=== PATIENT | male | born 1930 | race Caucasian/White ===

== ENCOUNTER 2019-04-20 23:50 | Inpatient (IN) | payer OTHER ==
[~2019-04-20] VITALS: Ht 165.1 cm; Wt 77.6 kg
[2019-04-21] VITALS (32 sets, daily range): BP systolic 92–153; BP diastolic 40–84
[2019-04-21] MEDS ORDERED: IPRATROPIUM BROMIDE (0.02%) 0.5MG/2.5ML NEB HHN STA (00:24)
[2019-04-21] MEDS ORDERED: METHYLPREDNISOLONE SOD SUCC 125 MG/2 ML VIAL IV STA (00:24)
[2019-04-21] MEDS ORDERED: ONDANSETRON HCL 4MG/2ML INJ IV STA (00:24)
[2019-04-21] MEDS ORDERED: NITROGLYCERIN OINT 1GM/INCH UDPKT TD ONE (00:30)
[2019-04-21] MEDS ORDERED: MAGNESIUM 2 G PREMIX 50 ML IV ONE (00:30)
[2019-04-21] MEDS ORDERED: VANCOMYCIN 1 G PREMIX 200 ML IV ONE (01:00)
[2019-04-21] MEDS ORDERED: PIPERACILLIN/TAZ 3.375G PREMIX 50 ML IV ONE (01:00)
[2019-04-21 01:07] LABS: BASOPHILS % 0.5 % (0.0-2.0); EOSINOPHILS % 2.5 % (0.0-5.0); HEMATOCRIT. 45.7 % (42.0-52.0); HEMOGLOBIN. 14.8 g/dL (14.0-18.0); LYMPHOCYTES % 17.9 % (20.0-50.0); MEAN CORPUSCULAR HEMOGLOBIN 29.8 pg (28.0-32.0); MEAN CORPUSCULAR VOLUME 92.1 fL (80.0-94.0); MEAN PLATELET VOLUME 8.4 fl (7.4-10.4); MONOCYTES % 5.5 % (2.0-8.0); NEUTROPHILS % 73.6 % (40.0-76.0); PLATELET 238 x1000/uL (130-400); RED BLOOD CELL COUNT 4.96 mill/uL (4.7-6.1); RED CELL DISTRIBUTION WIDTH 18.2 % (11.6-14.6)
[2019-04-21 01:42] LABS: CHLORIDE 115 mEq/L (98-107)
[2019-04-21] MEDS: ALBUTEROL (0.083%) 2.5MG/3ML NEB HHN SCH ×3 (02:30→03:30)
[2019-04-21] MEDS ORDERED: ALBUTEROL (0.083%) 2.5MG/3ML NEB ONE (03:42)
[2019-04-21] MEDS ORDERED: DOCUSATE SODIUM 100MG CAPSULE PO PRN (07:30)
[2019-04-21] MEDS ORDERED: GUAIFENESIN 200MG/10ML SUGAR FREE UDC PO PRN (07:30)
[2019-04-21] MEDS ORDERED: LORAZEPAM 2MG/ML CPJ IV PRN (07:30)
[2019-04-21] MEDS ORDERED: ACETAMINOPHEN 325MG TABLET PO PRN (07:30)
[2019-04-21] MEDS ORDERED: MORPHINE SULFATE 2 MG/ML CPJ (NOT FOR IM USE) IV PRN (07:30)
[2019-04-21] MEDS ORDERED: IPRATROPIUM/ALBUTEROL 0.5-3(2.5)MG/3ML NEB HHN PRN (07:30)
[2019-04-21] MEDS ORDERED: CLONIDINE 0.1MG TABLET PO PRN (07:30)
[2019-04-21] MEDS ORDERED: DIPHENHYDRAMINE 50MG/ML VIAL IV PRN (07:30)
[2019-04-21] MEDS ORDERED: ONDANSETRON HCL 4MG/2ML INJ IV PRN (07:30)
[2019-04-21] MEDS ORDERED: MAGNESIUM/ALUMINUM HYDROXIDE/SIMETHICONE 30ML UDC PO PRN (07:30)
[2019-04-21] MEDS ORDERED: HYDROCODONE/ACETAMINOPHEN 10/325MG TABLET PO PRN (07:30)
[2019-04-21] MEDS: ENOXAPARIN 40MG/0.4ML SYR SUBCUT SCH (09:30)
[2019-04-21] MEDS ORDERED: PROPOFOL 10MG/ML 100ML 100 ML IV PRN (11:45)
[2019-04-21] MEDS: IPRATROPIUM/ALBUTEROL 0.5-3(2.5)MG/3ML NEB HHN SCH ×3 (12:05→20:31)
[2019-04-21 12:35] LABS: BG BASE EXCESS -3.4 mmol/L (-2.0-2.0); BG CARBOXYHEMOGLOBIN 0.9 % (0.5-1.5); BG DEOXYHEMOGLOBIN 1.8 % (0.0-5.0); BG FRACTION INSPIRED OXYGEN 50; BG METHEMOGLOBIN 0.3 % (0.0-1.5); BG OXYGEN SATURATION 98.2 % (92.0-98.5); BG PO2 106.5 mmHg (75.0-100.0); BG SAMPLE SITE RIGHT RADIAL; BG TIDAL VOLUME(mL) 500 mL; BG TOTAL HEMOGLOBIN 14.7 g/dL (12.0-18.0); BG VENT MODE VENT - A/C; BG VENT RATE 16 set
[2019-04-21 12:41] LABS: T4 FREE 1.28 ng/dL (0.76-1.46)
[2019-04-21] MEDS ORDERED: LIDOCAINE HCL 1% 20ML VIAL (Pyxis) INJ ONE (12:44)
[2019-04-21] MEDS: SODIUM CHLORIDE 0.9% INJ 3ML FLUSH IVF SCH ×2 (13:53→21:14)
[2019-04-21] MEDS: DEXT 5%/0.9% NACL 1,000 ML IV SCH (15:45)
[2019-04-21] MEDS: FUROSEMIDE 40MG/4ML VIAL IVP SCH (15:45)
[2019-04-21 16:24] LABS: CLARITY URINE CLOUDY (CLEAR); COLOR URINE DARK YELLOW (YELLOW); KETONES URINE 1+ (NEGATIVE); LEUKOCYTE ESTERASE URINE NEGATIVE (NEGATIVE); NITRITE URINE NEGATIVE (NEGATIVE); OCCULT BLOOD URINE 3+ (NEGATIVE); PH URINE 5.5 (4.5-8.0); PROTEIN URINE TRACE (NEGATIVE); SPECIFIC GRAVITY URINE 1.031 (1.005-1.030)
[2019-04-21] MEDS: PIPERACILLIN/TAZOBACTAM 3.375 G in DEXT 5% WATER 100 ML IV SCH ×2 (16:35→23:32)
[2019-04-21 16:48] LABS: *AMPHETAMINES SCREEN URINE NEGATIVE (NEGATIVE); *BARBITURATES SCREEN URINE NEGATIVE (NEGATIVE); *BENZODIAZEPINES SCREEN URINE NEGATIVE (NEGATIVE); *COCAINE SCREEN URINE NEGATIVE (NEGATIVE); METHADONE URINE SCREEN NEGATIVE (NEGATIVE); OPIATES URINE SCREEN NEGATIVE (NEGATIVE)
[2019-04-21 16:49] LABS: CANNABINOID URINE SCREEN NEGATIVE (NEGATIVE); PHENCYCLIDINE URINE SCREEN NEGATIVE (NEGATIVE)
[2019-04-21] MEDS: FENTANYL CITRATE/PF 500 MCG in SODIUM CHLORIDE 0.9% 40 ML IV PRN ×2 (17:18→22:46)
[2019-04-21 17:29] LABS: CREATINE KINASE 92 IU/L (39-308)
[2019-04-21] MEDS: VANCOMYCIN 1 G PREMIX 200 ML IV SCH (17:30)
[2019-04-21 17:32] LABS: CREATINE KINASE MB FRACTION 2.3 ng/mL (0.5-3.6)
[2019-04-21] MEDS ORDERED: DOPAMINE 800MG PREMIX (DOUBLE) 250 ML IV PRN (21:30)
[2019-04-21 22:09] LABS: CREATINE KINASE 85 IU/L (39-308)
[2019-04-21 22:10] LABS: CREATINE KINASE MB FRACTION 1.8 ng/mL (0.5-3.6)
[2019-04-21] MEDS ORDERED: IOHEXOL-350 100 ML BOTTLE ONE (23:01)
[2019-04-22] VITALS (64 sets, daily range): BP systolic 60–168; BP diastolic 28–89
[2019-04-22] MEDS: IPRATROPIUM/ALBUTEROL 0.5-3(2.5)MG/3ML NEB HHN SCH ×6 (00:24→19:44)
[2019-04-22] MEDS: PIPERACILLIN/TAZOBACTAM 3.375 G in DEXT 5% WATER 100 ML IV SCH ×4 (05:22→22:13)
[2019-04-22] MEDS: SODIUM CHLORIDE 0.9% INJ 3ML FLUSH IVF SCH ×3 (05:22→22:14)
[2019-04-22 05:33] LABS: BASOPHILS % 0.4 % (0.0-2.0); HEMATOCRIT. 43.4 % (42.0-52.0); HEMOGLOBIN. 14.1 g/dL (14.0-18.0); LYMPHOCYTES % 8.8 % (20.0-50.0); MEAN CORPUSCULAR HEMOGLOBIN 29.3 pg (28.0-32.0); MEAN CORPUSCULAR VOLUME 90.2 fL (80.0-94.0); MEAN PLATELET VOLUME 7.9 fl (7.4-10.4); MONOCYTES % 5.4 % (2.0-8.0); NEUTROPHILS % 85.4 % (40.0-76.0); PLATELET 277 x1000/uL (130-400); RED BLOOD CELL COUNT 4.81 mill/uL (4.7-6.1)
[2019-04-22 05:38] LABS: CHLORIDE 109 mEq/L (98-107)
[2019-04-22 07:45] LABS: BG BASE EXCESS 4.8 mmol/L (-2.0-2.0); BG DEOXYHEMOGLOBIN 4.3 % (0.0-5.0); BG HCO3 ACT 26.8 mmol/L (22.0-26.0); BG METHEMOGLOBIN 0.3 % (0.0-1.5); BG OXYGEN SATURATION 95.6 % (92.0-98.5); BG OXYHEMOGLOBIN 94.4 % (94.0-97.0); BG PCO2 31.9 mmHg (35.0-45.0); BG PH 7.542 (7.350-7.450); BG SAMPLE SITE RIGHT BRACHIAL; BG TIDAL VOLUME(mL) 500 mL; BG TOTAL HEMOGLOBIN 14.7 g/dL (12.0-18.0); BG VENT MODE VENT - A/C; BG VENT RATE 16 set
[2019-04-22] MEDS: FUROSEMIDE 40MG/4ML VIAL IVP SCH (08:09)
[2019-04-22] MEDS: ENOXAPARIN 40MG/0.4ML SYR SUBCUT SCH (08:10)
[2019-04-22] MEDS: FENTANYL CITRATE/PF 500 MCG in SODIUM CHLORIDE 0.9% 40 ML IV PRN ×2 (08:11→14:26)
[2019-04-22] MEDS ORDERED: POTASSIUM CHLORIDE INJ 40 MEQ in DEXT 5% WATER 250 ML IV SCH (10:00)
[2019-04-22] MEDS ORDERED: POTA20LI52 PO (12:13)
[2019-04-22] MEDS ORDERED: LEVO50TA8 PO (12:13)
[2019-04-22] MEDS ORDERED: LISI-186 PO (12:13)
[2019-04-22] MEDS ORDERED: CARV3.1242 PO (12:13)
[2019-04-22] MEDS ORDERED: OXYB5TAB17 PO (12:13)
[2019-04-22] MEDS: VANCOMYCIN 1 G PREMIX 200 ML IV SCH (14:35)
[2019-04-22] MEDS: PANTOPRAZOLE SODIUM 40 MG/VIAL IV SCH (18:12)
[2019-04-22] MEDS: NYSTATIN POWDER 15GM TOP SCH (18:12)
[2019-04-22] MEDS: DEXT 5%/0.9% NACL 1,000 ML IV SCH (18:13)
[2019-04-23] VITALS (39 sets, daily range): BP systolic 93–190; BP diastolic 36–100
[2019-04-23] MEDS: FENTANYL CITRATE/PF 500 MCG in SODIUM CHLORIDE 0.9% 40 ML IV PRN ×3 (03:22→18:11)
[2019-04-23] MEDS: IPRATROPIUM/ALBUTEROL 0.5-3(2.5)MG/3ML NEB HHN SCH ×6 (04:07→20:51)
[2019-04-23 06:06] LABS: CHLORIDE 104 mEq/L (98-107)
[2019-04-23] MEDS: VANCOMYCIN 1 G PREMIX 200 ML IV SCH (06:30)
[2019-04-23] MEDS: PIPERACILLIN/TAZOBACTAM 3.375 G in DEXT 5% WATER 100 ML IV SCH ×3 (06:30→16:54)
[2019-04-23] MEDS: SODIUM CHLORIDE 0.9% INJ 3ML FLUSH IVF SCH ×3 (06:31→22:01)
[2019-04-23 08:06] LABS: BG BASE EXCESS 2.2 mmol/L (-2.0-2.0); BG CARBOXYHEMOGLOBIN 0.5 % (0.5-1.5); BG DEOXYHEMOGLOBIN 3.4 % (0.0-5.0); BG FRACTION INSPIRED OXYGEN 50; BG HCO3 ACT 26.7 mmol/L (22.0-26.0); BG METHEMOGLOBIN 0.1 % (0.0-1.5); BG OXYGEN SATURATION 96.6 % (92.0-98.5); BG PCO2 41.2 mmHg (35.0-45.0); BG PO2 86.9 mmHg (75.0-100.0); BG SAMPLE SITE RIGHT RADIAL; BG TIDAL VOLUME(mL) 500 mL; BG VENT MODE VENT - A/C; BG VENT RATE 12 set
[2019-04-23] MEDS: PANTOPRAZOLE SODIUM 40 MG/VIAL IV SCH (08:41)
[2019-04-23] MEDS: FUROSEMIDE 40MG/4ML VIAL IVP SCH (08:41)
[2019-04-23] MEDS: NYSTATIN POWDER 15GM TOP SCH ×3 (08:42→10:01)
[2019-04-23] MEDS: ENOXAPARIN 40MG/0.4ML SYR SUBCUT SCH (08:43)
[2019-04-23] MEDS: NYSTATIN/TRIAMCIN CREAM 15GM TOP SCH ×2 (09:00→17:00)
[2019-04-23] MEDS ORDERED: ALBUMIN HUMAN 25GM/500ML (5%) IV SCH (11:00)
[2019-04-23] MEDS: AZITHROMYCIN 500 MG TABLET PO SCH (18:06)
[2019-04-23] MEDS: CEFTRIAXONE 1 G PREMIX 50 ML IV SCH (18:28)
[2019-04-23 18:43] LABS: INR 1.3; PROTHROMBIN TIME 13.7 sec (9.6-11.0)
[2019-04-23 18:45] LABS: BASOPHILS % 0.7 % (0.0-2.0); EOSINOPHILS % 1.5 % (0.0-5.0); HEMATOCRIT. 42.9 % (42.0-52.0); HEMOGLOBIN. 14.2 g/dL (14.0-18.0); LYMPHOCYTES % 9.2 % (20.0-50.0); MEAN CORPUSCULAR HEMOGLOBIN 29.5 pg (28.0-32.0); MEAN CORPUSCULAR VOLUME 89.5 fL (80.0-94.0); MEAN PLATELET VOLUME 7.3 fl (7.4-10.4); NEUTROPHILS % 81.6 % (40.0-76.0); PLATELET 234 x1000/uL (130-400); RED BLOOD CELL COUNT 4.79 mill/uL (4.7-6.1); RED CELL DISTRIBUTION WIDTH 17.7 % (11.6-14.6)
[2019-04-24] VITALS (87 sets, daily range): BP systolic 69–195; BP diastolic 37–116
[2019-04-24] MEDS: IPRATROPIUM/ALBUTEROL 0.5-3(2.5)MG/3ML NEB HHN SCH ×6 (00:40→20:44)
[2019-04-24] MEDS: FENTANYL CITRATE/PF 500 MCG in SODIUM CHLORIDE 0.9% 40 ML IV PRN ×3 (04:26→23:31)
[2019-04-24 05:47] LABS: BASOPHILS % 0.3 % (0.0-2.0); EOSINOPHILS % 1.1 % (0.0-5.0); HEMATOCRIT. 44.5 % (42.0-52.0); HEMOGLOBIN. 14.7 g/dL (14.0-18.0); LYMPHOCYTES % 9.8 % (20.0-50.0); MEAN CORPUSCULAR HEMOGLOBIN 29.6 pg (28.0-32.0); MEAN CORPUSCULAR VOLUME 89.8 fL (80.0-94.0); MEAN PLATELET VOLUME 7.8 fl (7.4-10.4); MONOCYTES % 6.3 % (2.0-8.0); NEUTROPHILS % 82.5 % (40.0-76.0); PLATELET 231 x1000/uL (130-400); RED BLOOD CELL COUNT 4.96 mill/uL (4.7-6.1); RED CELL DISTRIBUTION WIDTH 17.9 % (11.6-14.6)
[2019-04-24 06:00] LABS: CHLORIDE 99 mEq/L (98-107)
[2019-04-24 06:07] LABS: PROSTRATE SPECIFIC AG TOTAL 0.19 ng/mL (0.0-4.0)
[2019-04-24 06:13] LABS: PHOSPHORUS 2.6 mg/dL (2.5-4.9)
[2019-04-24 06:18] LABS: HEPATITIS B SURFACE ANTIGEN NEGATIVE
[2019-04-24] MEDS: SODIUM CHLORIDE 0.9% INJ 3ML FLUSH IVF SCH ×3 (06:32→19:53)
[2019-04-24 06:47] LABS: HEPATITIS A AB IGM NEGATIVE (NEGATIVE)
[2019-04-24] MEDS: ENOXAPARIN 40MG/0.4ML SYR SUBCUT SCH (08:49)
[2019-04-24] MEDS: FUROSEMIDE 40MG/4ML VIAL IVP SCH (08:49)
[2019-04-24] MEDS: PANTOPRAZOLE SODIUM 40 MG/VIAL IV SCH (08:49)
[2019-04-24] MEDS: NYSTATIN/TRIAMCIN CREAM 15GM TOP SCH ×2 (09:00→18:45)
[2019-04-24] MEDS: NYSTATIN POWDER 15GM TOP SCH ×3 (09:00→16:59)
[2019-04-24 10:07] LABS: BG BASE EXCESS -0.5 mmol/L (-2.0-2.0); BG CARBOXYHEMOGLOBIN 0.4 % (0.5-1.5); BG DEOXYHEMOGLOBIN 2.1 % (0.0-5.0); BG METHEMOGLOBIN 0.2 % (0.0-1.5); BG OXYGEN SATURATION 97.9 % (92.0-98.5); BG OXYHEMOGLOBIN 97.3 % (94.0-97.0); BG PCO2 34.5 mmHg (35.0-45.0); BG PH 7.441 (7.350-7.450); BG PO2 102.3 mmHg (75.0-100.0); BG SAMPLE SITE RIGHT RADIAL; BG TIDAL VOLUME(mL) 500 mL; BG TOTAL HEMOGLOBIN 14.6 g/dL (12.0-18.0); BG VENT MODE VENT - A/C; BG VENT RATE 12 set
[2019-04-24] MEDS ORDERED: MAGNESIUM 2 G PREMIX 50 ML IV NR (10:30)
[2019-04-24] MEDS ORDERED: POTASSIUM CHLORIDE INJ 60 MEQ in DEXT 5% WATER 500 ML IV NR (10:30)
[2019-04-24] MEDS ORDERED: RACEPINEPHRINE 2.25% 0.5ML NEB VIAL HHN NR (14:15)
[2019-04-24] MEDS: AZITHROMYCIN 500 MG TABLET PO SCH (17:05)
[2019-04-24] MEDS: CEFTRIAXONE 1 G PREMIX 50 ML IV SCH (18:45)
[2019-04-24] MEDS: METHYLPREDNISOLONE SOD SUCC 40 MG/ML VIAL IV SCH (18:47)
[2019-04-25] VITALS (34 sets, daily range): BP systolic 79–170; BP diastolic 43–103
[2019-04-25] MEDS: IPRATROPIUM/ALBUTEROL 0.5-3(2.5)MG/3ML NEB HHN SCH ×6 (00:34→20:41)
[2019-04-25] MEDS: METHYLPREDNISOLONE SOD SUCC 40 MG/ML VIAL IV SCH ×2 (05:16→17:22)
[2019-04-25] MEDS: SODIUM CHLORIDE 0.9% INJ 3ML FLUSH IVF SCH ×3 (05:16→21:38)
[2019-04-25 05:59] LABS: CHLORIDE 98 mEq/L (98-107)
[2019-04-25 06:25] LABS: HEMATOCRIT. 44.9 % (42.0-52.0); HEMOGLOBIN. 15.2 g/dL (14.0-18.0); MEAN CORPUSCULAR HEMOGLOBIN 30.2 pg (28.0-32.0); MEAN CORPUSCULAR VOLUME 89.3 fL (80.0-94.0); MEAN PLATELET VOLUME 7.9 fl (7.4-10.4); PLATELET 239 x1000/uL (130-400); RED BLOOD CELL COUNT 5.04 mill/uL (4.7-6.1); RED CELL DISTRIBUTION WIDTH 17.4 % (11.6-14.6)
[2019-04-25 08:28] LABS: BG BASE EXCESS 0.3 mmol/L (-2.0-2.0); BG CARBOXYHEMOGLOBIN 1.1 % (0.5-1.5); BG DEOXYHEMOGLOBIN 1.6 % (0.0-5.0); BG HCO3 ACT 23.3 mmol/L (22.0-26.0); BG METHEMOGLOBIN 0.3 % (0.0-1.5); BG OXYGEN SATURATION 98.4 % (92.0-98.5); BG PCO2 32.9 mmHg (35.0-45.0); BG PH 7.468 (7.350-7.450); BG PO2 110.2 mmHg (75.0-100.0); BG SAMPLE SITE RIGHT RADIAL; BG TIDAL VOLUME(mL) 500 mL; BG TOTAL HEMOGLOBIN 14.3 g/dL (12.0-18.0); BG VENT MODE VENT - A/C; BG VENT RATE 12 set
[2019-04-25] MEDS: FENTANYL CITRATE/PF 500 MCG in SODIUM CHLORIDE 0.9% 40 ML IV PRN (08:41)
[2019-04-25] MEDS: FUROSEMIDE 40MG/4ML VIAL IVP SCH (09:02)
[2019-04-25] MEDS: PANTOPRAZOLE SODIUM 40 MG/VIAL IV SCH (09:02)
[2019-04-25] MEDS: NYSTATIN POWDER 15GM TOP SCH ×3 (09:03→17:23)
[2019-04-25] MEDS: NYSTATIN/TRIAMCIN CREAM 15GM TOP SCH ×2 (09:03→17:22)
[2019-04-25 09:18] LABS: PLATELET ESTIMATE NORMAL
[2019-04-25] MEDS ORDERED: FUROSEMIDE 40MG/4ML VIAL IVP NR (12:30)
[2019-04-25] MEDS: HYDRALAZINE 20MG/ML VIAL IV PRN (12:39)
[2019-04-25 13:38] LABS: BG BASE EXCESS -0.1 mmol/L (-2.0-2.0); BG CARBOXYHEMOGLOBIN 0.8 % (0.5-1.5); BG CPAP (cmH2O) 0 cm(H2O); BG DEOXYHEMOGLOBIN 2.9 % (0.0-5.0); BG METHEMOGLOBIN 0.3 % (0.0-1.5); BG OXYGEN SATURATION 97.1 % (92.0-98.5); BG PCO2 42.4 mmHg (35.0-45.0); BG PH 7.389 (7.350-7.450); BG SAMPLE SITE RIGHT BRACHIAL; BG TOTAL HEMOGLOBIN 15.4 g/dL (12.0-18.0); BG VENT MODE VENT - CPAP
[2019-04-25] MEDS ORDERED: FUROSEMIDE 40MG/4ML VIAL IVP SCH (17:00)
[2019-04-25] MEDS: AZITHROMYCIN 500 MG TABLET PO SCH (17:22)
[2019-04-25] MEDS: LORAZEPAM 2MG/ML CPJ IV PRN (23:11)
[2019-04-26] VITALS (42 sets, daily range): BP systolic 75–166; BP diastolic 37–108
[2019-04-26] MEDS: IPRATROPIUM/ALBUTEROL 0.5-3(2.5)MG/3ML NEB HHN SCH ×6 (00:28→20:50)
[2019-04-26 05:47] LABS: HEMATOCRIT. 42.1 % (42.0-52.0); MEAN CORPUSCULAR HEMOGLOBIN 29.8 pg (28.0-32.0); MEAN CORPUSCULAR VOLUME 89.6 fL (80.0-94.0); MEAN PLATELET VOLUME 7.8 fl (7.4-10.4); PLATELET 222 x1000/uL (130-400); RED BLOOD CELL COUNT 4.71 mill/uL (4.7-6.1); RED CELL DISTRIBUTION WIDTH 17.5 % (11.6-14.6)
[2019-04-26] MEDS: SODIUM CHLORIDE 0.9% INJ 3ML FLUSH IVF SCH ×3 (05:57→21:07)
[2019-04-26] MEDS: METHYLPREDNISOLONE SOD SUCC 40 MG/ML VIAL IV SCH ×2 (05:58→17:13)
[2019-04-26 06:03] LABS: CHLORIDE 99 mEq/L (98-107)
[2019-04-26 08:21] LABS: PLATELET ESTIMATE NORMAL
[2019-04-26] MEDS: FUROSEMIDE 40MG/4ML VIAL IVP SCH ×2 (08:32→17:07)
[2019-04-26] MEDS: PANTOPRAZOLE SODIUM 40 MG/VIAL IV SCH (08:32)
[2019-04-26] MEDS: NYSTATIN POWDER 15GM TOP SCH ×3 (08:33→17:08)
[2019-04-26] MEDS: NYSTATIN/TRIAMCIN CREAM 15GM TOP SCH ×2 (08:33→17:07)
[2019-04-26 09:14] LABS: BG BASE EXCESS 2.5 mmol/L (-2.0-2.0); BG CARBOXYHEMOGLOBIN 0.9 % (0.5-1.5); BG DEOXYHEMOGLOBIN 4.7 % (0.0-5.0); BG FRACTION INSPIRED OXYGEN 35; BG HCO3 ACT 28.2 mmol/L (22.0-26.0); BG METHEMOGLOBIN 0.2 % (0.0-1.5); BG OXYGEN SATURATION 95.2 % (92.0-98.5); BG OXYHEMOGLOBIN 94.2 % (94.0-97.0); BG PCO2 47.4 mmHg (35.0-45.0); BG PH 7.393 (7.350-7.450); BG PO2 78.2 mmHg (75.0-100.0); BG SAMPLE SITE RIGHT RADIAL; BG TOTAL HEMOGLOBIN 16.1 g/dL (12.0-18.0); BG VENT MODE MASK - AEROSOL
[2019-04-26] MEDS: CEFTRIAXONE 1 G PREMIX 50 ML IV SCH ×2 (10:09→17:07)
[2019-04-26] MEDS ORDERED: POTASSIUM CHLORIDE INJ 40 MEQ in DEXT 5% WATER 500 ML IV ONE (11:00)
[2019-04-26] MEDS ORDERED: POTASSIUM CHLORIDE INJ 40 MEQ in DEXT 5% WATER 250 ML IV NR (12:00)
[2019-04-26] MEDS: AZITHROMYCIN 500 MG TABLET PO SCH (17:07)
[2019-04-26] MEDS: LORAZEPAM 2MG/ML CPJ IV PRN (17:30)
[2019-04-27] VITALS (13 sets, daily range): BP systolic 91–161; BP diastolic 51–113
[2019-04-27] MEDS: IPRATROPIUM/ALBUTEROL 0.5-3(2.5)MG/3ML NEB HHN SCH ×6 (00:55→19:48)
[2019-04-27] MEDS: FUROSEMIDE 40MG/4ML VIAL IVP SCH ×2 (06:33→18:08)
[2019-04-27] MEDS: METHYLPREDNISOLONE SOD SUCC 40 MG/ML VIAL IV SCH ×2 (06:33→18:58)
[2019-04-27] MEDS: SODIUM CHLORIDE 0.9% INJ 3ML FLUSH IVF SCH ×2 (06:33→14:00)
[2019-04-27 06:39] LABS: HEMATOCRIT. 42.7 % (42.0-52.0); HEMOGLOBIN. 14.3 g/dL (14.0-18.0); MEAN CORPUSCULAR HEMOGLOBIN 29.7 pg (28.0-32.0); MEAN CORPUSCULAR VOLUME 88.7 fL (80.0-94.0); MEAN PLATELET VOLUME 7.6 fl (7.4-10.4); PLATELET 239 x1000/uL (130-400); RED BLOOD CELL COUNT 4.81 mill/uL (4.7-6.1); RED CELL DISTRIBUTION WIDTH 17.3 % (11.6-14.6)
[2019-04-27] MEDS: NYSTATIN/TRIAMCIN CREAM 15GM TOP SCH ×2 (09:24→17:35)
[2019-04-27] MEDS: NYSTATIN POWDER 15GM TOP SCH ×2 (09:24→17:33)
[2019-04-27] MEDS: PANTOPRAZOLE SODIUM 40 MG/VIAL IV SCH (09:24)
[2019-04-27 09:51] LABS: PLATELET ESTIMATE NORMAL
[2019-04-27] MEDS: LOSARTAN POTASSIUM 25 MG TABLET PO SCH (11:45)
[2019-04-27] MEDS ORDERED: POTASSIUM CHLORIDE INJ 40 MEQ in DEXT 5% WATER 250 ML IV NR (12:00)
[2019-04-27] MEDS: AZITHROMYCIN 500 MG TABLET PO SCH (17:00)
[2019-04-27] MEDS: LORAZEPAM 2MG/ML CPJ IV PRN (17:30)
[2019-04-27] MEDS: RISPERIDONE 0.5MG TABLET PO SCH (17:30)
[2019-04-27] MEDS: CEFTRIAXONE 1 G PREMIX 50 ML IV SCH (20:08)
[2019-04-28] VITALS (10 sets, daily range): BP systolic 108–161; BP diastolic 21–91
[2019-04-28] MEDS: IPRATROPIUM/ALBUTEROL 0.5-3(2.5)MG/3ML NEB HHN SCH ×6 (00:08→19:58)
[2019-04-28] MEDS: SODIUM CHLORIDE 0.9% INJ 3ML FLUSH IVF SCH ×4 (02:11→21:39)
[2019-04-28] MEDS: LORAZEPAM 2MG/ML CPJ IV PRN (02:45)
[2019-04-28] MEDS: FUROSEMIDE 40MG/4ML VIAL IVP SCH (06:45)
[2019-04-28] MEDS: METHYLPREDNISOLONE SOD SUCC 40 MG/ML VIAL IV SCH ×2 (06:45→17:32)
[2019-04-28 06:50] LABS: HEMATOCRIT. 41.2 % (42.0-52.0); HEMOGLOBIN. 13.4 g/dL (14.0-18.0); MEAN CORPUSCULAR VOLUME 89.3 fL (80.0-94.0); MEAN PLATELET VOLUME 7.7 fl (7.4-10.4); PLATELET 206 x1000/uL (130-400); RED BLOOD CELL COUNT 4.62 mill/uL (4.7-6.1); RED CELL DISTRIBUTION WIDTH 17.5 % (11.6-14.6)
[2019-04-28 07:06] LABS: CHLORIDE 100 mEq/L (98-107)
[2019-04-28] MEDS: NYSTATIN POWDER 15GM TOP SCH ×3 (09:35→17:32)
[2019-04-28] MEDS: RISPERIDONE 0.5MG TABLET PO SCH ×2 (09:35→17:32)
[2019-04-28] MEDS: FAMOTIDINE 20MG/2ML VIAL IV SCH (09:35)
[2019-04-28] MEDS: LOSARTAN POTASSIUM 25 MG TABLET PO SCH (09:35)
[2019-04-28] MEDS: NYSTATIN/TRIAMCIN CREAM 15GM TOP SCH ×2 (09:35→17:33)
[2019-04-28] MEDS: POTASSIUM CHLORIDE 20MEQ/PACKET PO SCH ×2 (11:10→13:23)
[2019-04-28 14:29] LABS: CHLORIDE 100 mEq/L (98-107)
[2019-04-28 14:37] LABS: NUCLEATED RED BLOOD CELLS 1 /100 WBC
[2019-04-28 14:38] LABS: PLATELET ESTIMATE NORMAL
[2019-04-29] VITALS (12 sets, daily range): BP systolic 118–158; BP diastolic 59–95
[2019-04-29] MEDS: IPRATROPIUM/ALBUTEROL 0.5-3(2.5)MG/3ML NEB HHN SCH ×6 (00:01→20:34)
[2019-04-29] MEDS: DEXT 5%/0.45% NACL 1000ML 1,000 ML IV SCH ×2 (00:15→20:48)
[2019-04-29] MEDS: METHYLPREDNISOLONE SOD SUCC 40 MG/ML VIAL IV SCH (05:14)
[2019-04-29] MEDS: SODIUM CHLORIDE 0.9% INJ 3ML FLUSH IVF SCH ×2 (05:16→14:07)
[2019-04-29 05:21] LABS: HEMATOCRIT. 42.3 % (42.0-52.0); HEMOGLOBIN. 13.8 g/dL (14.0-18.0); MEAN CORPUSCULAR HEMOGLOBIN 29.5 pg (28.0-32.0); MEAN CORPUSCULAR VOLUME 90.3 fL (80.0-94.0); MEAN PLATELET VOLUME 7.9 fl (7.4-10.4); PLATELET 164 x1000/uL (130-400); RED BLOOD CELL COUNT 4.68 mill/uL (4.7-6.1); RED CELL DISTRIBUTION WIDTH 17.5 % (11.6-14.6)
[2019-04-29 05:36] LABS: CHLORIDE 103 mEq/L (98-107)
[2019-04-29] MEDS: RISPERIDONE 0.5MG TABLET PO SCH (09:00)
[2019-04-29] MEDS: LOSARTAN POTASSIUM 25 MG TABLET PO SCH (09:00)
[2019-04-29] MEDS ORDERED: FUROSEMIDE 40MG/4ML VIAL IVP SCH (09:00)
[2019-04-29] MEDS: FAMOTIDINE 20MG/2ML VIAL IV SCH (09:22)
[2019-04-29] MEDS: NYSTATIN/TRIAMCIN CREAM 15GM TOP SCH ×2 (09:41→17:00)
[2019-04-29] MEDS: NYSTATIN POWDER 15GM TOP SCH ×3 (09:41→17:00)
[2019-04-29 11:50] LABS: BG BASE EXCESS 10.7 mmol/L (-2.0-2.0); BG CARBOXYHEMOGLOBIN 0.9 % (0.5-1.5); BG DEOXYHEMOGLOBIN 0.7 % (0.0-5.0); BG FRACTION INSPIRED OXYGEN 32; BG HCO3 ACT 36.2 mmol/L (22.0-26.0); BG METHEMOGLOBIN 0.3 % (0.0-1.5); BG OXYGEN SATURATION 99.3 % (92.0-98.5); BG OXYHEMOGLOBIN 98.1 % (94.0-97.0); BG PCO2 50.6 mmHg (35.0-45.0); BG PH 7.472 (7.350-7.450); BG PO2 167.6 mmHg (75.0-100.0); BG SAMPLE SITE RIGHT RADIAL; BG TOTAL HEMOGLOBIN 14.5 g/dL (12.0-18.0); BG VENT MODE NASAL CANNULA
[2019-04-29] MEDS ORDERED: KCL 20MEQ/100ML PREMIX 100 ML IV NR (12:30)
[2019-04-29 13:44] LABS: PLATELET ESTIMATE NORMAL
[2019-04-29 17:49] LABS: BG BASE EXCESS 10.5 mmol/L (-2.0-2.0); BG CARBOXYHEMOGLOBIN 0.6 % (0.5-1.5); BG FRACTION INSPIRED OXYGEN 21; BG METHEMOGLOBIN 0.2 % (0.0-1.5); BG OXYGEN SATURATION 91.9 % (92.0-98.5); BG OXYHEMOGLOBIN 91.2 % (94.0-97.0); BG PCO2 45.3 mmHg (35.0-45.0); BG PH 7.506 (7.350-7.450); BG PO2 60.4 mmHg (75.0-100.0); BG SAMPLE SITE RIGHT RADIAL; BG TOTAL HEMOGLOBIN 14.6 g/dL (12.0-18.0); BG VENT MODE ROOM AIR
[2019-04-30] VITALS (11 sets, daily range): BP systolic 106–145; BP diastolic 52–83
[2019-04-30] MEDS: IPRATROPIUM/ALBUTEROL 0.5-3(2.5)MG/3ML NEB HHN SCH ×6 (00:19→20:40)
[2019-04-30 06:01] LABS: CHLORIDE 103 mEq/L (98-107)
[2019-04-30 06:26] LABS: BASOPHILS % 0.3 % (0.0-2.0); EOSINOPHILS % 0.2 % (0.0-5.0); HEMATOCRIT. 41.7 % (42.0-52.0); HEMOGLOBIN. 13.8 g/dL (14.0-18.0); LYMPHOCYTES % 9.2 % (20.0-50.0); MEAN CORPUSCULAR HEMOGLOBIN 29.7 pg (28.0-32.0); MEAN PLATELET VOLUME 8.1 fl (7.4-10.4); MONOCYTES % 6.9 % (2.0-8.0); NEUTROPHILS % 83.4 % (40.0-76.0); PLATELET 174 x1000/uL (130-400); RED BLOOD CELL COUNT 4.63 mill/uL (4.7-6.1); RED CELL DISTRIBUTION WIDTH 17.4 % (11.6-14.6)
[2019-04-30 06:27] LABS: VITAMIN B12 SERUM 1747 pg/mL (211-911)
[2019-04-30 08:45] LABS: BG BASE EXCESS 12.2 mmol/L (-2.0-2.0); BG BILEVEL POS AIRWAY PRESSURE 15/5 (16); BG CARBOXYHEMOGLOBIN 1.1 % (0.5-1.5); BG DEOXYHEMOGLOBIN 1.6 % (0.0-5.0); BG FRACTION INSPIRED OXYGEN 28; BG HCO3 ACT 36.7 mmol/L (22.0-26.0); BG METHEMOGLOBIN 0.2 % (0.0-1.5); BG OXYGEN SATURATION 98.4 % (92.0-98.5); BG OXYHEMOGLOBIN 97.1 % (94.0-97.0); BG PCO2 46.1 mmHg (35.0-45.0); BG PH 7.519 (7.350-7.450); BG PO2 107.7 mmHg (75.0-100.0); BG SAMPLE SITE RIGHT RADIAL; BG TOTAL HEMOGLOBIN 14.8 g/dL (12.0-18.0); BG VENT MODE MASK - BIPAP
[2019-04-30] MEDS: RISPERIDONE 0.5MG TABLET PO SCH (09:00)
[2019-04-30] MEDS: LOSARTAN POTASSIUM 25 MG TABLET PO SCH (09:00)
[2019-04-30] MEDS ORDERED: POTASSIUM CHLORIDE INJ 40 MEQ in DEXT 5% WATER 250 ML IV NR (09:00)
[2019-04-30] MEDS: NYSTATIN POWDER 15GM TOP SCH ×3 (09:42→17:00)
[2019-04-30] MEDS: NYSTATIN/TRIAMCIN CREAM 15GM TOP SCH ×2 (09:42→17:00)
[2019-04-30] MEDS: METHYLPREDNISOLONE SOD SUCC 40 MG/ML VIAL IV SCH (09:56)
[2019-04-30] MEDS: FAMOTIDINE 20MG/2ML VIAL IV SCH (09:56)
[2019-04-30] MEDS ORDERED: CEFAZOLIN 1000MG PREMIX 50 ML IV SCH (13:00)
[2019-04-30] MEDS: SODIUM CHLORIDE 0.9% INJ 3ML FLUSH IVF SCH ×2 (14:00→21:57)
[2019-04-30] MEDS: FUROSEMIDE 40MG/4ML VIAL IVP SCH (15:30)
[2019-04-30] MEDS ORDERED: PROPOFOL 200MG/20ML VIAL IV ONE (16:16)
[2019-04-30] MEDS ORDERED: MORPHINE SULFATE 2 MG/ML CPJ (NOT FOR IM USE) IV ONE (17:14)
[2019-04-30] MEDS ORDERED: MORPHINE SULFATE 2 MG/ML CPJ (NOT FOR IM USE) IV SCH (17:15)
[2019-05-01] VITALS (13 sets, daily range): BP systolic 91–152; BP diastolic 48–97
[2019-05-01] MEDS: IPRATROPIUM/ALBUTEROL 0.5-3(2.5)MG/3ML NEB HHN SCH ×6 (04:00→21:02)
[2019-05-01] MEDS: SODIUM CHLORIDE 0.9% INJ 3ML FLUSH IVF SCH ×3 (06:00→21:41)
[2019-05-01] MEDS: FAMOTIDINE 20MG/2ML VIAL IV SCH (09:58)
[2019-05-01] MEDS: METHYLPREDNISOLONE SOD SUCC 40 MG/ML VIAL IV SCH (09:58)
[2019-05-01] MEDS: LOSARTAN POTASSIUM 25 MG TABLET PO SCH (09:58)
[2019-05-01] MEDS: RISPERIDONE 0.5MG TABLET PO SCH (09:58)
[2019-05-01] MEDS: NYSTATIN POWDER 15GM TOP SCH ×3 (09:59→17:54)
[2019-05-01] MEDS: NYSTATIN/TRIAMCIN CREAM 15GM TOP SCH ×2 (09:59→17:53)
[2019-05-01] MEDS: DEXT 5%/0.45% NACL 1000ML 1,000 ML IV SCH (12:09)
[2019-05-01] MEDS: FUROSEMIDE 40MG/4ML VIAL IVP SCH (12:09)
[2019-05-01] MEDS: SUCRALFATE 1 G/10 ML UDC PO SCH ×2 (17:53→21:41)
[2019-05-01] MEDS: PANTOPRAZOLE SODIUM 40 MG/VIAL IV SCH (17:53)
[2019-05-02] VITALS (11 sets, daily range): BP systolic 90–152; BP diastolic 47–82
[2019-05-02] MEDS: IPRATROPIUM/ALBUTEROL 0.5-3(2.5)MG/3ML NEB HHN SCH ×6 (00:28→20:05)
[2019-05-02 06:01] LABS: HEMATOCRIT. 47.9 % (42.0-52.0); HEMOGLOBIN. 15.4 g/dL (14.0-18.0); MEAN CORPUSCULAR HEMOGLOBIN 29.2 pg (28.0-32.0); MEAN CORPUSCULAR VOLUME 90.8 fL (80.0-94.0); MEAN PLATELET VOLUME 8.1 fl (7.4-10.4); PLATELET 110 x1000/uL (130-400); RED BLOOD CELL COUNT 5.28 mill/uL (4.7-6.1); RED CELL DISTRIBUTION WIDTH 17.7 % (11.6-14.6)
[2019-05-02] MEDS: SODIUM CHLORIDE 0.9% INJ 3ML FLUSH IVF SCH ×3 (06:27→20:48)
[2019-05-02 07:10] LABS: CHLORIDE 101 mEq/L (98-107)
[2019-05-02] MEDS: LOSARTAN POTASSIUM 25 MG TABLET PO SCH ×2 (09:00→09:21)
[2019-05-02] MEDS: RISPERIDONE 0.5MG TABLET PO SCH (09:21)
[2019-05-02] MEDS: SUCRALFATE 1 G/10 ML UDC PO SCH ×4 (09:21→20:48)
[2019-05-02] MEDS: FUROSEMIDE 40MG/4ML VIAL IVP SCH (09:22)
[2019-05-02] MEDS: NYSTATIN/TRIAMCIN CREAM 15GM TOP SCH ×2 (09:22→17:33)
[2019-05-02] MEDS: NYSTATIN POWDER 15GM TOP SCH ×3 (09:22→17:33)
[2019-05-02] MEDS: METHYLPREDNISOLONE SOD SUCC 40 MG/ML VIAL IV SCH (09:22)
[2019-05-02] MEDS: PANTOPRAZOLE SODIUM 40 MG/VIAL IV SCH (09:22)
[2019-05-02] MEDS: DEXT 5%/0.45% NACL 1000ML 1,000 ML IV SCH (09:24)
[2019-05-02] MEDS ORDERED: POTASSIUM CHLORIDE 20MEQ/PACKET PO SCH (12:15)
[2019-05-02] MEDS ORDERED: DIATR MEGLU/DIATRIZOATE SOLN 30ML ONE (13:38)
[2019-05-02] MEDS: PIPERACILLIN/TAZOBACTAM 3.375 G in DEXT 5% WATER 100 ML IV SCH ×2 (15:29→20:48)
[2019-05-02] MEDS: ENOXAPARIN 40MG/0.4ML SYR SUBCUT SCH (17:33)
[2019-05-03] VITALS (12 sets, daily range): BP systolic 96–157; BP diastolic 47–93
[2019-05-03] MEDS: IPRATROPIUM/ALBUTEROL 0.5-3(2.5)MG/3ML NEB HHN SCH ×6 (00:09→20:03)
[2019-05-03] MEDS: PIPERACILLIN/TAZOBACTAM 3.375 G in DEXT 5% WATER 100 ML IV SCH ×4 (00:31→18:07)
[2019-05-03] MEDS: SODIUM CHLORIDE 0.9% INJ 3ML FLUSH IVF SCH ×3 (05:36→21:04)
[2019-05-03 06:03] LABS: HEMATOCRIT. 43.6 % (42.0-52.0); HEMOGLOBIN. 14.1 g/dL (14.0-18.0); MEAN CORPUSCULAR VOLUME 89.8 fL (80.0-94.0); MEAN PLATELET VOLUME 8.8 fl (7.4-10.4); PLATELET 108 x1000/uL (130-400); RED BLOOD CELL COUNT 4.86 mill/uL (4.7-6.1); RED CELL DISTRIBUTION WIDTH 17.5 % (11.6-14.6)
[2019-05-03 06:41] LABS: CHLORIDE 101 mEq/L (98-107)
[2019-05-03 07:55] LABS: PLATELET ESTIMATE SLIGHTLY DECREASED
[2019-05-03] MEDS: SUCRALFATE 1 G/10 ML UDC PO SCH ×4 (08:44→20:33)
[2019-05-03] MEDS: RISPERIDONE 0.5MG TABLET PO SCH (08:44)
[2019-05-03] MEDS: LOSARTAN POTASSIUM 25 MG TABLET PO SCH (08:44)
[2019-05-03] MEDS: PANTOPRAZOLE SODIUM 40 MG/VIAL IV SCH (08:44)
[2019-05-03] MEDS: NYSTATIN POWDER 15GM TOP SCH ×3 (08:45→16:34)
[2019-05-03] MEDS: NYSTATIN/TRIAMCIN CREAM 15GM TOP SCH ×2 (08:45→16:35)
[2019-05-03] MEDS: POTASSIUM CHLORIDE 20MEQ/PACKET PO SCH (08:46)
[2019-05-03] MEDS: FUROSEMIDE 40MG/4ML VIAL IVP SCH (10:43)
[2019-05-03 12:06] LABS: PLATELET ESTIMATE DECREASED
[2019-05-03 15:02] LABS: CLARITY URINE CLEAR (CLEAR); COLOR URINE YELLOW (YELLOW); KETONES URINE NEGATIVE (NEGATIVE); LEUKOCYTE ESTERASE URINE 1+ (NEGATIVE); NITRITE URINE NEGATIVE (NEGATIVE); OCCULT BLOOD URINE 1+ (NEGATIVE); PH URINE 8.5 (4.5-8.0); PROTEIN URINE NEGATIVE (NEGATIVE); SPECIFIC GRAVITY URINE 1.007 (1.005-1.030)
[2019-05-03] MEDS: ENOXAPARIN 40MG/0.4ML SYR SUBCUT SCH (16:33)
[2019-05-03] MEDS ORDERED: VANCOMYCIN 1500MG in DEXTROSE 5% WATER 250ML IV NR (21:00)
[2019-05-04] VITALS (13 sets, daily range): BP systolic 93–166; BP diastolic 52–91
[2019-05-04] MEDS: IPRATROPIUM/ALBUTEROL 0.5-3(2.5)MG/3ML NEB HHN SCH ×6 (00:10→20:05)
[2019-05-04] MEDS: SODIUM CHLORIDE 0.9% INJ 3ML FLUSH IVF SCH ×3 (05:22→20:57)
[2019-05-04] MEDS: FUROSEMIDE 40MG/4ML VIAL IVP SCH (08:57)
[2019-05-04] MEDS: PANTOPRAZOLE SODIUM 40 MG/VIAL IV SCH (08:57)
[2019-05-04] MEDS: POTASSIUM CHLORIDE 20MEQ/PACKET PO SCH (08:57)
[2019-05-04] MEDS: LOSARTAN POTASSIUM 25 MG TABLET PO SCH (08:57)
[2019-05-04] MEDS: RISPERIDONE 0.5MG TABLET PO SCH (08:57)
[2019-05-04] MEDS: SUCRALFATE 1 G/10 ML UDC PO SCH ×4 (08:57→20:57)
[2019-05-04] MEDS: NYSTATIN/TRIAMCIN CREAM 15GM TOP SCH ×2 (08:58→16:33)
[2019-05-04] MEDS: NYSTATIN POWDER 15GM TOP SCH ×3 (08:58→16:33)
[2019-05-04] MEDS: HYDRALAZINE 20MG/ML VIAL IV PRN (09:37)
[2019-05-04] MEDS ORDERED: POTASSIUM CHLORIDE 20MEQ TABLET SR PO NR (11:30)
[2019-05-04] MEDS: VANCOMYCIN 1 G PREMIX 200 ML IV SCH (12:05)
[2019-05-04] MEDS ORDERED: POTASSIUM CHLORIDE 20MEQ/PACKET PO NR (13:15)
[2019-05-04] MEDS: ENOXAPARIN 40MG/0.4ML SYR SUBCUT SCH (16:33)
[2019-05-04 20:14] LABS: BASOPHILS % 0.3 % (0.0-2.0); EOSINOPHILS % 0.7 % (0.0-5.0); HEMATOCRIT. 49.4 % (42.0-52.0); HEMOGLOBIN. 16.2 g/dL (14.0-18.0); LYMPHOCYTES % 7.5 % (20.0-50.0); MEAN CORPUSCULAR HEMOGLOBIN 29.3 pg (28.0-32.0); MEAN CORPUSCULAR VOLUME 89.4 fL (80.0-94.0); MEAN PLATELET VOLUME 8.8 fl (7.4-10.4); MONOCYTES % 5.8 % (2.0-8.0); NEUTROPHILS % 85.7 % (40.0-76.0); PLATELET 139 x1000/uL (130-400); RED BLOOD CELL COUNT 5.52 mill/uL (4.7-6.1); RED CELL DISTRIBUTION WIDTH 17.4 % (11.6-14.6)
[2019-05-04 20:36] LABS: CHLORIDE 100 mEq/L (98-107)
[2019-05-05] VITALS (12 sets, daily range): BP systolic 73–118; BP diastolic 38–75
[2019-05-05] MEDS: IPRATROPIUM/ALBUTEROL 0.5-3(2.5)MG/3ML NEB HHN SCH ×6 (00:28→20:17)
[2019-05-05] MEDS: SODIUM CHLORIDE 0.9% INJ 3ML FLUSH IVF SCH ×3 (05:41→21:40)
[2019-05-05] MEDS: VANCOMYCIN 1 G PREMIX 200 ML IV SCH (05:57)
[2019-05-05 07:32] LABS: BASOPHILS % 0.2 % (0.0-2.0); EOSINOPHILS % 1.3 % (0.0-5.0); HEMOGLOBIN. 15.3 g/dL (14.0-18.0); LYMPHOCYTES % 9.4 % (20.0-50.0); MEAN CORPUSCULAR HEMOGLOBIN 29.3 pg (28.0-32.0); MEAN PLATELET VOLUME 8.6 fl (7.4-10.4); MONOCYTES % 5.8 % (2.0-8.0); NEUTROPHILS % 83.3 % (40.0-76.0); PLATELET 117 x1000/uL (130-400); RED BLOOD CELL COUNT 5.22 mill/uL (4.7-6.1); RED CELL DISTRIBUTION WIDTH 18.2 % (11.6-14.6)
[2019-05-05 07:40] LABS: CHLORIDE 101 mEq/L (98-107)
[2019-05-05] MEDS: SUCRALFATE 1 G/10 ML UDC PO SCH ×4 (08:24→21:40)
[2019-05-05] MEDS: PANTOPRAZOLE SODIUM 40 MG/VIAL IV SCH (08:24)
[2019-05-05] MEDS: NYSTATIN POWDER 15GM TOP SCH ×3 (08:25→17:38)
[2019-05-05] MEDS: RISPERIDONE 0.5MG TABLET PO SCH (08:25)
[2019-05-05] MEDS: LOSARTAN POTASSIUM 25 MG TABLET PO SCH (08:25)
[2019-05-05] MEDS: POTASSIUM CHLORIDE 20MEQ/PACKET PO SCH (08:25)
[2019-05-05] MEDS: NYSTATIN/TRIAMCIN CREAM 15GM TOP SCH ×2 (08:26→17:38)
[2019-05-05] MEDS: FUROSEMIDE 40MG/4ML VIAL IVP SCH (09:06)
[2019-05-05] MEDS: ENOXAPARIN 40MG/0.4ML SYR SUBCUT SCH (15:37)
[2019-05-06] VITALS (8 sets, daily range): BP systolic 74–137; BP diastolic 39–76
[2019-05-06] MEDS: IPRATROPIUM/ALBUTEROL 0.5-3(2.5)MG/3ML NEB HHN SCH ×6 (00:30→20:53)
[2019-05-06] MEDS: VANCOMYCIN 1 G PREMIX 200 ML IV SCH (00:52)
[2019-05-06] MEDS: SODIUM CHLORIDE 0.9% INJ 3ML FLUSH IVF SCH ×3 (05:29→21:38)
[2019-05-06 06:35] LABS: CHLORIDE 101 mEq/L (98-107)
[2019-05-06] MEDS: POTASSIUM CHLORIDE 20MEQ/PACKET PO SCH (08:33)
[2019-05-06] MEDS: SUCRALFATE 1 G/10 ML UDC PO SCH ×3 (08:33→21:38)
[2019-05-06] MEDS: PANTOPRAZOLE SODIUM 40 MG/VIAL IV SCH (08:33)
[2019-05-06] MEDS: RISPERIDONE 0.5MG TABLET PO SCH (08:33)
[2019-05-06] MEDS: LOSARTAN POTASSIUM 25 MG TABLET PO SCH (08:33)
[2019-05-06] MEDS: FUROSEMIDE 40MG/4ML VIAL IVP SCH (08:33)
[2019-05-06] MEDS: NYSTATIN/TRIAMCIN CREAM 15GM TOP SCH ×2 (08:34→18:27)
[2019-05-06] MEDS: NYSTATIN POWDER 15GM TOP SCH ×3 (08:34→18:27)
[2019-05-06] MEDS: ENOXAPARIN 40MG/0.4ML SYR SUBCUT SCH (18:27)
[2019-05-07] VITALS: BP 98/49
[2019-05-07] MEDS: IPRATROPIUM/ALBUTEROL 0.5-3(2.5)MG/3ML NEB HHN SCH ×6 (00:12→21:21)
[2019-05-07 04:00] VITALS: BP 112/53
[2019-05-07] MEDS: SUCRALFATE 1 G/10 ML UDC PO SCH ×4 (06:44→22:00)
[2019-05-07] MEDS: SODIUM CHLORIDE 0.9% INJ 3ML FLUSH IVF SCH ×3 (06:44→22:00)
[2019-05-07 07:17] LABS: CHLORIDE 103 mEq/L (98-107)
[2019-05-07 08:00] VITALS: BP 131/61
[2019-05-07] MEDS: POTASSIUM CHLORIDE 20MEQ/PACKET PO SCH (10:21)
[2019-05-07] MEDS: PANTOPRAZOLE SODIUM 40 MG/VIAL IV SCH (10:21)
[2019-05-07] MEDS: FUROSEMIDE 40MG/4ML VIAL IVP SCH (10:22)
[2019-05-07] MEDS: RISPERIDONE 0.5MG TABLET PO SCH (10:22)
[2019-05-07] MEDS: LOSARTAN POTASSIUM 25 MG TABLET PO SCH (10:22)
[2019-05-07 11:44] VITALS: BP 113/52
[2019-05-07 16:00] VITALS: BP 126/67
[2019-05-07] MEDS: VANCOMYCIN 1 G PREMIX 200 ML IV SCH (18:03)
[2019-05-07] MEDS: ENOXAPARIN 40MG/0.4ML SYR SUBCUT SCH (18:04)
[2019-05-07 20:00] VITALS: BP 118/26
[2019-05-08] VITALS: BP 127/57
[2019-05-08] MEDS: IPRATROPIUM/ALBUTEROL 0.5-3(2.5)MG/3ML NEB HHN SCH ×5 (01:20→20:56)
[2019-05-08 04:00] VITALS: BP 119/52
[2019-05-08] MEDS: SODIUM CHLORIDE 0.9% INJ 3ML FLUSH IVF SCH ×2 (06:49→14:30)
[2019-05-08] MEDS: SUCRALFATE 1 G/10 ML UDC PO SCH ×3 (06:49→16:24)
[2019-05-08 08:00] VITALS: BP 101/49
[2019-05-08] MEDS: POTASSIUM CHLORIDE 20MEQ/PACKET PO SCH (08:54)
[2019-05-08] MEDS: PANTOPRAZOLE SODIUM 40 MG/VIAL IV SCH (08:56)
[2019-05-08] MEDS: FUROSEMIDE 40MG/4ML VIAL IVP SCH (08:56)
[2019-05-08] MEDS: RISPERIDONE 0.5MG TABLET PO SCH (08:56)
[2019-05-08] MEDS: LOSARTAN POTASSIUM 25 MG TABLET PO SCH (09:00)
[2019-05-08 11:05] LABS: BASOPHILS % 1.2 % (0.0-2.0); HEMATOCRIT. 45.3 % (42.0-52.0); LYMPHOCYTES % 8.6 % (20.0-50.0); MEAN CORPUSCULAR HEMOGLOBIN 29.6 pg (28.0-32.0); MEAN CORPUSCULAR VOLUME 89.4 fL (80.0-94.0); MEAN PLATELET VOLUME 8.2 fl (7.4-10.4); MONOCYTES % 5.2 % (2.0-8.0); PLATELET 167 x1000/uL (130-400); RED BLOOD CELL COUNT 5.07 mill/uL (4.7-6.1); RED CELL DISTRIBUTION WIDTH 17.6 % (11.6-14.6)
[2019-05-08 11:16] LABS: CHLORIDE 105 mEq/L (98-107)
[2019-05-08 12:00] VITALS: BP 142/78
[2019-05-08] MEDS: VANCOMYCIN 1 G PREMIX 200 ML IV SCH (14:30)
[2019-05-08 16:00] VITALS: BP 112/45
[2019-05-08] MEDS: ENOXAPARIN 40MG/0.4ML SYR SUBCUT SCH (16:24)
[2019-05-08 20:00] VITALS: BP 156/64
[2019-05-09] VITALS: BP 117/60
[2019-05-09] MEDS: IPRATROPIUM/ALBUTEROL 0.5-3(2.5)MG/3ML NEB HHN SCH ×5 (01:24→21:12)
[2019-05-09 04:00] VITALS: BP 96/42
[2019-05-09 08:00] VITALS: BP 125/53
[2019-05-09] MEDS: POTASSIUM CHLORIDE 20MEQ/PACKET PO SCH (08:46)
[2019-05-09] MEDS: PANTOPRAZOLE SODIUM 40 MG/VIAL IV SCH (08:46)
[2019-05-09] MEDS: RISPERIDONE 0.5MG TABLET PO SCH (08:46)
[2019-05-09] MEDS: FUROSEMIDE 40MG/4ML VIAL IVP SCH (08:46)
[2019-05-09] MEDS: SUCRALFATE 1 G/10 ML UDC PO SCH ×4 (08:46→20:59)
[2019-05-09] MEDS: LOSARTAN POTASSIUM 25 MG TABLET PO SCH (08:46)
[2019-05-09 12:00] VITALS: BP 113/52
[2019-05-09] MEDS: SODIUM CHLORIDE 0.9% INJ 3ML FLUSH IVF SCH ×2 (13:05→21:00)
[2019-05-09] MEDS: VANCOMYCIN 1 G PREMIX 200 ML IV SCH (14:46)
[2019-05-09 16:00] VITALS: BP 109/52
[2019-05-09] MEDS: ENOXAPARIN 40MG/0.4ML SYR SUBCUT SCH (16:53)
[2019-05-09 20:00] VITALS: BP 125/60
[2019-05-10] VITALS: BP 120/58
[2019-05-10] MEDS: IPRATROPIUM/ALBUTEROL 0.5-3(2.5)MG/3ML NEB HHN SCH ×6 (00:34→21:16)
[2019-05-10 04:00] VITALS: BP 106/52
[2019-05-10] MEDS: SUCRALFATE 1 G/10 ML UDC PO SCH ×4 (05:47→21:42)
[2019-05-10] MEDS: SODIUM CHLORIDE 0.9% INJ 3ML FLUSH IVF SCH ×3 (05:47→21:42)
[2019-05-10 07:13] LABS: BASOPHILS % 0.5 % (0.0-2.0); HEMATOCRIT. 43.4 % (42.0-52.0); HEMOGLOBIN. 14.3 g/dL (14.0-18.0); LYMPHOCYTES % 10.9 % (20.0-50.0); MEAN CORPUSCULAR HEMOGLOBIN 29.3 pg (28.0-32.0); MEAN CORPUSCULAR VOLUME 88.9 fL (80.0-94.0); MEAN PLATELET VOLUME 8.4 fl (7.4-10.4); MONOCYTES % 4.5 % (2.0-8.0); NEUTROPHILS % 82.1 % (40.0-76.0); PLATELET 165 x1000/uL (130-400); RED BLOOD CELL COUNT 4.88 mill/uL (4.7-6.1); RED CELL DISTRIBUTION WIDTH 17.9 % (11.6-14.6)
[2019-05-10 08:00] VITALS: BP 93/45
[2019-05-10 08:21] LABS: CHLORIDE 104 mEq/L (98-107)
[2019-05-10] MEDS: POTASSIUM CHLORIDE 20MEQ/PACKET PO SCH (08:51)
[2019-05-10] MEDS: PANTOPRAZOLE SODIUM 40 MG/VIAL IV SCH (08:51)
[2019-05-10] MEDS: LOSARTAN POTASSIUM 25 MG TABLET PO SCH ×2 (08:51→08:55)
[2019-05-10] MEDS: FUROSEMIDE 40MG/4ML VIAL IVP SCH (08:51)
[2019-05-10] MEDS: RISPERIDONE 0.5MG TABLET PO SCH (08:51)
[2019-05-10 12:00] VITALS: BP 86/50
[2019-05-10] MEDS ORDERED: VANCOMYCIN 1,000 MG in DEXT 5% WATER 250 ML IV SCH (14:00)
[2019-05-10] MEDS: VANCOMYCIN HCL 750 MG in DEXT 5% WATER 250 ML IV SCH (14:06)
[2019-05-10] MEDS: ENOXAPARIN 40MG/0.4ML SYR SUBCUT SCH (16:33)
[2019-05-10 20:00] VITALS: BP 143/89
[2019-05-11] VITALS: BP 91/49
[2019-05-11] MEDS: IPRATROPIUM/ALBUTEROL 0.5-3(2.5)MG/3ML NEB HHN SCH ×4 (02:01→12:34)
[2019-05-11 04:00] VITALS: BP 116/57
[2019-05-11] MEDS: SODIUM CHLORIDE 0.9% INJ 3ML FLUSH IVF SCH (06:03)
[2019-05-11] MEDS: SUCRALFATE 1 G/10 ML UDC PO SCH ×2 (06:03→12:42)
[2019-05-11 08:00] VITALS: BP 110/59
[2019-05-11] MEDS: LOSARTAN POTASSIUM 25 MG TABLET PO SCH (09:37)
[2019-05-11] MEDS: FUROSEMIDE 40MG/4ML VIAL IVP SCH (09:37)
[2019-05-11] MEDS: PANTOPRAZOLE SODIUM 40 MG/VIAL IV SCH (09:37)
[2019-05-11] MEDS: POTASSIUM CHLORIDE 20MEQ/PACKET PO SCH (09:37)
[2019-05-11] MEDS: RISPERIDONE 0.5MG TABLET PO SCH (09:37)
[2019-05-11 12:00] VITALS: BP 123/51
[2019-05-11] MEDS: VANCOMYCIN HCL 750 MG in DEXT 5% WATER 250 ML IV SCH (14:29)
[2019-05-11 14:54] VITALS: BP 123/51
[2019-05-11] MEDS ORDERED: PANT40SU MT (14:57)
[2019-05-11] MEDS ORDERED: FURO-151 MT (14:57)
[2019-05-11] MEDS ORDERED: RISP05 MT (14:57)
[2019-05-11] MEDS ORDERED: SUCR1TAB30 MT (14:57)
[2019-05-11 16:00] VITALS: BP 115/64
== END 2019-05-11 18:20 | DRG 870 ==
LOC: ER 23:50 → EDBD 04-21 02:50 → 5EST 04-21 02:50 → EDBEDREQSVC 04-21 03:01 → EDBEDREQ 04-21 03:01 → EDBEDREQTM 04-21 03:01 → ENRESERV 04-21 04:51 → 5EST 04-21 09:13 → CVICU 04-21 11:50 → 5EST 04-27 04:50 → 5WST 05-06 11:55
PROVIDERS: ADMIT Internal Medicine; ATTEND Internal Medicine
PROC: 02HV33Z Insertion of Infusion Device into Superior Vena Cava, Percutaneous Approach (ICD-10-PCS; 2019-04-21)
PROC: 5A1955Z Respiratory Ventilation, Greater than 96 Consecutive Hours (ICD-10-PCS; principal; 2019-04-25)
PROC: 3E0G76Z Introduction of Nutritional Substance into Upper GI, Via Natural or Artificial Opening (ICD-10-PCS; 2019-04-30)
PROC: 0DH63UZ Insertion of Feeding Device into Stomach, Percutaneous Approach (ICD-10-PCS; 2019-04-30)
PROC: 02HV33Z Insertion of Infusion Device into Superior Vena Cava, Percutaneous Approach (ICD-10-PCS; 2019-05-06)
PROC: B5181ZA Fluoroscopy of Superior Vena Cava using Low Osmolar Contrast, Guidance (ICD-10-PCS; 2019-05-06)
DX: A41.9 Sepsis, unspecified organism (principal); G93.41 Metabolic encephalopathy; I50.43 Acute on chronic combined systolic (congestive) and diastolic (congestive) heart failure; J96.01 Acute respiratory failure with hypoxia; J18.9 Pneumonia, unspecified organism; J69.0 Pneumonitis due to inhalation of food and vomit; E46 Unspecified protein-calorie malnutrition; I42.9 Cardiomyopathy, unspecified; E87.6 Hypokalemia; E11.9 Type 2 diabetes mellitus without complications; E78.5 Hyperlipidemia, unspecified; C61 Malignant neoplasm of prostate; I71.9 Aortic aneurysm of unspecified site, without rupture; I11.0 Hypertensive heart disease with heart failure; F03.90 Unspecified dementia, unspecified severity, without behavioral disturbance, psychotic disturbance, mood disturbance, and anxiety; K29.70 Gastritis, unspecified, without bleeding
CPT/HCPCS: 36415; 36600; 70551; 71045; 71275; 74018; 76705; 76937; 80048; 80053; 80061; 80202; 80305; 81003; 82140; 82375; 82550; 82553; 82607; 82805; 83036; 83605; 83735; 83880; 84100; 84132; 84134; 84145; 84153; 84439; 84443; 84478; 84484; 85025; 85379; 86705; 86709; 86803; 87070; 87077; 87340; 87449; 87804; 88305; 88313; 92610; 93005; 93306; 93970; 94003; 94640; 94660; 95816; 97162; 97165; 99291; C1725; C9113; J0360; J0690; J0696; J1200; J1265; J1650; J1940; J2060; J2270; J2405; J2543; J2704; J2920; J2930; J3010; J3370; J3475; J3480; J3490; J7042; J7060; P9041; Q9963; Q9967; G0103